=== PATIENT | male | born 2005 | race Caucasian/White ===

== ENCOUNTER 2024-04-30 10:37 | Emergency (ER) | payer OTHER, SELFPAY ==
[2024-04-30] VITALS (7 sets, daily range): BP systolic 112–129; BP diastolic 61–83; PULSE 57–69; RESP 15–22; TEMP 36.9; O2SAT 97–100; BMI 21.6
--- NOTE | 2024-04-30 10:46 | EKG_ITS ---
[address] [address] Test Date: 2024-04-30 Pat Name: John Durham Department: Room: Gender: Male Index Clerk: ALFRED : 2005 Requested By: Order Number: [id number] Reading MD: Bhupendra Paiz Measurements Intervals [place] Rate: 67 P: 72 VT: 152 QRS: 62 QRSD: 100 T: 54 QT: 376 QTc: 397 Interpretive Statements Normal sinus rhythm with sinus arrhythmia Electronically Signed On 05-02-2024 18:28:40 PDT by Bhupendra Paiz
--- NOTE | 2024-04-30 10:53 | DI.RAD.S_ITS ---
PROCEDURE: XR CHEST 1V INDICATIONS: chest pain TECHNIQUE: One view of the chest was acquired. COMPARISON: None. FINDINGS: Surgical changes and devices: None. Lungs and pleura: Lungs are clear. No pleural effusions or pneumothorax. Mediastinum: Mediastinal contours appear normal. Heart size is normal. Bones and chest wall: No suspicious bony lesions. Overlying soft tissues appear unremarkable. IMPRESSION: No acute cardiopulmonary pathology. Dictated by: Joey Dutton M.D. on 04/30/2024 at 11:35 Approved by: Joey Dutton M.D. on 04/30/2024 at 11:37
--- NOTE | 2024-04-30 10:53 | PC.NURSE ---
Pt denies c/o in triage
[2024-04-30 11:01] LABS: Prothrombin Time 11.6 SECONDS (9.4-12.5)
[2024-04-30 11:04] LABS: PTT Partial Thromboplastin Tim 35 SECONDS (25.1-36.5)
[2024-04-30 11:08] LABS: Alanine Aminotransferase 35 IU/L (<50); Albumin 4.9 g/dL (3.5-5.0); Albumin Globulin Ratio 1.8 (1.0-2.8); Alkaline Phosphatase 91 U/L (38-126); Aspartate Aminotransferase 34 IU/L (17-59); BUN Creatinine Ratio 17.2 (6-22); Bilirubin Total 0.5 mg/dL (0.2-1.3); Blood Urea Nitrogen 17 mg/dL (9-20); Calcium 9.8 mg/dL (8.4-10.2); Carbon Dioxide 29 mmol/L (22-32); Chloride 101 mmol/L (98-107); Creatine Kinase 130 U/L (55-170); Estimated Glomerular Filt Rate > 60 mL/min (>60); Globulin 2.7 g/dL (1.7-4.1); Glucose 78 mg/dL (70-100); HEMOLYSIS < 15 (0-50); Lipase 42 U/L (23-300); Magnesium 2.2 mg/dL (1.6-2.3); Potassium 4.1 mmol/L (3.4-5.1); Sodium 139 mmol/L (137-145); Total Protein 7.6 g/dL (6.3-8.2)
[2024-04-30 11:11] LABS: Add Manual Diff / Slide Review NO; Basophils Absolute Auto 100 /uL (0-100); Basophils Percent Auto 0.9 % (0-2); Eosinophils Absolute Auto 200 /uL (0-450); Eosinophils Percent Auto 3.7 % (2-4); Hematocrit 42.8 % (41-53); Hemoglobin 14.5 g/dL (13.5-17.5); Lymphocytes Absolute Auto 2500 /uL (1100-4500); Lymphocytes Percent Auto 43.4 % (25-40); Mean Corpuscular HGB Conc 33.9 % (30-36); Mean Corpuscular Hemoglobin 29.5 PG (26-34); Mean Corpuscular Volume 87.1 fL (80-100); Monocytes Absolute Auto 700 /uL (0-900); Neutrophils Absolute Auto 2300 /uL (1500-7000); Platelet Count 312 X10^3/uL (150-400); Red Blood Cell Count 4.91 X10^6/uL (4.5-5.9); Red Cell Distribution Width 13.1 % (11.6-14.8); White Blood Cell Count 5.7 X10^3/uL (4.5-11.0)
[2024-04-30 11:18] LABS: NT-proBNP (BNP-Adult 18+) < 20 pg/mL (<125); Troponin I < 0.012 ng/mL (0.01-0.034)
--- NOTE | 2024-04-30 12:38 | ED_ITS ---
HPI - General Adult General Chief complaint: Syncope Stated complaint: Syncope Time Seen by Provider: 04/30/24 10:41 Source: patient, family and EMS Mode of arrival: EMS History of Present Illness HPI narrative: 19-year-old gentleman with recurrent episodes of syncope and near-syncope as well as dizziness. He has been seen by his primary care physician who believes that he likely has POTS, he is found that his sinus arrhythmia is much less noticeable on small dose of propranolol. He was seen ER at [facility] about a month and a half ago with similar complaints negative workup. Today he had a breakfast was at work, gently walking no significant exercise began to feel slightly lightheaded and then had a syncopal episode. It was brief there was no seizure-like episode, medics were called. On arrival he feels that he is back to his baseline. He does not note recent fevers, cough, chills. Occasionally he will report mild chest pain associated with this syncopal episodes but does not associate any significant rhythm changes with the episodes. Review of Systems Review of Systems Narrative: Pertinent positive and negative findings as per HPI Patient History Medical History (Updated 04/30/24 @ 13:03 by Genie Allen MD) POTS (postural orthostatic tachycardia syndrome) Social History Smoking Status: Never smoker Smoking Status: Never smoker Exam Initial Vital Signs Initial Vital Signs: Vital Signs Temperature 98.5 F 04/30/24 10:39 Pulse Rate 64 04/30/24 10:39 Respiratory Rate 16 04/30/24 10:39 Blood Pressure 127/75 04/30/24 10:39 Pulse Oximetry 100 04/30/24 10:39 Oxygen Delivery Method Room Air 04/30/24 10:39 General: Healthy appearing, in no acute distress. Able to give a complete and coherent history. Well-nourished well-developed HEENT: Moist mucous membranes, normal sclera with reactive pupils, Respiratory: Lungs are clear to auscultation, no wheezing no rales no rhonchi. Full and symmetrical air movement Cardiac: Regular rate and rhythm no murmurs no bruits Abdomen: Soft, nontender, good bowel tones, no flank pain Skin: Warm and dry, no rashes Neurologic: Grossly neurologically intact with no obvious asymmetries or abnormalities Extremities: No trauma, well perfused Psych: Cooperative, appropriate insight and affect Patient is not orthostatic Course Orders Ordered: ED Orders 04/30/24 10:30 Complete Blood Count AUTO DIFF Stat Comprehensive Metabolic Panel Stat Lipase Stat Magnesium Stat NT-proBNP (BNP-Adult 18+) Stat PTT Partial Thromboplastin Juan A Stat Prothrombin Time INR Stat Troponin & CK Cardiac Panel Stat 04/30/24 10:53 XR chest 1V Stat Vital Signs Vital signs: Vital Signs - 8 hr 04/30/24 10:39 04/30/24 11:51 04/30/24 11:52 Temperature 98.5 F Pulse Rate 64 64 58 L Respiratory Rate 16 22 Blood Pressure 127/75 Pulse Oximetry 100 100 99 Oxygen Delivery Method Room Air 04/30/24 11:52 04/30/24 12:00 04/30/24 12:00 Temperature Pulse Rate 57 L Respiratory Rate 17 Blood Pressure 129/74 119/71 Pulse Oximetry 98 Oxygen Delivery Method 04/30/24 12:30 04/30/24 12:30 Temperature Pulse Rate 66 Respiratory Rate 15 Blood Pressure 112/80 Pulse Oximetry 98 Oxygen Delivery Method Room Air Medical Decision Making Lab Data 04/30/24 10:30 04/30/24 10:30 Labs: Lab Results 04/30/24 Range/Units 10:30 WBC 5.7 (4.5-11.0) X10^3/uL RBC 4.91 (4.5-5.9) X10^6/uL Hgb 14.5 (13.5-17.5) g/dL Hct 42.8 (41-53) % MCV 87.1 (80-100) fL MCH 29.5 (26-34) PG MCHC 33.9 (30-36) % RDW 13.1 (11.6-14.8) % Plt Count 312 (150-400) X10^3/uL Neut % (Auto) 40.0 L (50-75) % Lymph % (Auto) 43.4 H (25-40) % [place] % (Auto) 12.0 (3-14) % Eos % (Auto) 3.7 (2-4) % Baso % (Auto) 0.9 (0-2) % Neut # (Auto) 2300 (6587-5589) /uL Lymph # (Auto) 2500 (3860-1788) /uL [place] # (Auto) 700 (0-900) /uL Eos # (Auto) 200 (0-450) /uL Baso # (Auto) 100 (0-100) /uL PT 11.6 (9.4-12.5) SECONDS INR 1.0 (0.9-1.3) APTT 35 (25.1-36.5) SECONDS Sodium 139 (137-145) mmol/L Potassium 4.1 (3.4-5.1) mmol/L Chloride 101 (98-107) mmol/L Carbon Dioxide 29 (22-32) mmol/L BUN 17 (9-20) mg/dL Creatinine 0.99 (0.66-1.25) mg/dL Estimated GFR > 60 (>60) mL/min BUN/Creatinine Ratio 17.2 (6-22) Glucose 78 (70-100) mg/dL Calcium 9.8 (8.4-10.2) mg/dL Magnesium 2.2 (1.6-2.3) mg/dL Total Bilirubin 0.5 (0.2-1.3) mg/dL AST 34 (17-59) IU/L ALT 35 (<50) IU/L Alkaline Phosphatase 91 (38-126) U/L Total Creatine Kinase 130 (55-170) U/L Troponin I < 0.012 (0.01-0.034) ng/mL NT-Pro-B Natriuret Pep < 20 (<125) pg/mL Total Protein 7.6 (6.3-8.2) g/dL Albumin 4.9 (3.5-5.0) g/dL Globulin 2.7 (1.7-4.1) g/dL Albumin/Globulin Ratio 1.8 (1.0-2.8) Lipase 42 (23-300) U/L Point of Care Testing Glucose POC 107 Point of care testing: Point of Care Testing Glucose POC 107 MDM Narrative Medical decision making narrative: CC: Syncopal episode Complicating co-morbidities: Tentative diagnosis of POTS, workup with primary care physician and cardiology referral has been initiated Data collected from: patient Differential considered: Cardiac arrhythmia, orthostatic hypotension, viral syndrome, pots Exam documented above, pertinent findings include: Exam is entirely benign. He has not been given any IV fluid and he is not showing any signs of orthostasis with no significant blood pressure or heart rate change from supine to standing Lab Test results independently reviewed as above. Pertinent findings: CBC is unremarkable Chemistries are reassuring Troponin is undetectable BNP is undetectable Lipase is normal Independently reviewed EKG: EKG shows sinus rhythm at a rate of 67 no acute ischemia Imaging studies independently reviewed: Chest x-ray shows no significant pathology Discussion: 19-year-old gentleman with a syncopal episode today. He is in the middle of a workup for the same. No significant pathology has been identified. There was no suggestion that this is pathologic arrhythmia, electrolyte abnormalities, significant dehydration, viral syndrome, seizure. Workup today is reassuring and reviewed in detail with him. Questions are answered encouraged him to continue with his outpatient workup and schedule the cardiology consultation. At this time there was no indication for additional imaging or blood work and he is safe for discharge Discharge Plan Departure Patient Disposition: Home Clinical Impression: Syncope Qualifiers: Syncope type: unspecified Qualified Code(s): R55 - Syncope and collapse Instructions: DI for Syncope in Adults (Fainting) Activity Restrictions/Additional Instructions: Thank you for coming in today I am sorry that you continue to have this episode with dizziness and getting lightheaded with almost passing out. Sounds like today's episode was more pronounced. I am glad that you are currently taking the propranolol 20 mg twice a day and would recommend you continue this. With your workup today you did not appear to be dehydrated, your kidney function, liver function, red blood cells, white blood cells as well as your chest x-ray and EKG were all absolutely normal. This is quite reassuring but does not give me an explanation for why you had this episode today. I would recommend you schedule a cardiac consultation recommended by your primary care physician If you find that you are getting worse or develop any new symptoms, please feel free to return to the emergency department for further evaluation. Stand Alone Forms: Patient Portal/API/Survey
== END 2024-04-30 13:15 | disposition home or self-care (01) ==
PROVIDERS: Emergency Provider Emergency Medicine
DX: R55 Syncope and collapse (principal); R42 Dizziness and giddiness; I49.8 Other specified cardiac arrhythmias; R07.9 Chest pain, unspecified
CPT/HCPCS: 71045; 80053; 82550; 83690; 83735; 83880; 84484; 85025; 85610; 85730; 93005; 99283; 99284